=== PATIENT | female | born 1985 | race Asian ===

== ENCOUNTER 2024-11-14 18:45 | Emergency (ER) | payer MEDICAID, SELFPAY ==
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
[2024-11-14 18:56] VITALS: BP 118/78; PULSE 64; RESP 18; TEMP 37.1; O2SAT 100
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
[2024-11-14 19:04] VITALS: PULSE 80; RESP 18; O2SAT 99; BMI 31.1
[2024-11-14 19:19] VITALS: BP 120/83; PULSE 73; RESP 18; TEMP 37.1; O2SAT 100
[2024-11-14] MEDS: DIPHTH,PERTUSS(ACELL),TET VAC 0.5 ML VIAL IMi (19:32)
[2024-11-14] MEDS: BACITRACIN OINT 15 GM TUBE TOP (19:34)
== END 2024-11-14 20:14 | disposition home or self-care (01) ==
PROVIDERS: Emergency Provider Emergency Medicine
DX: S52.202A Unspecified fracture of shaft of left ulna, initial encounter for closed fracture (principal); S00.81XA Abrasion of other part of head, initial encounter; V89.2XXA Person injured in unspecified motor-vehicle accident, traffic, initial encounter; Z23 Encounter for immunization
CPT/HCPCS: 29126; 73090; 90471; 90715; 99283